=== PATIENT | male | born 1960 | race Caucasian/White ===

== ENCOUNTER 2020-04-21 04:22 | Inpatient (IN) | payer MEDICARE, OTHER ==
[~2020-04-21] VITALS: Ht 188 cm; Wt 88.5 kg
[2020-04-21 05:02] LABS: BASOPHILS % 0.3 % (0.0-2.0); HEMATOCRIT. 49.3 % (42.0-52.0); HEMOGLOBIN. 16.9 g/dL (14.0-18.0); LYMPHOCYTES % 9.9 % (20.0-50.0); MEAN CORPUSCULAR HEMOGLOBIN 32.4 pg (28.0-32.0); MEAN CORPUSCULAR VOLUME 94.5 fL (80.0-94.0); MEAN PLATELET VOLUME 8.3 fl (7.4-10.4); MONOCYTES % 10.7 % (2.0-8.0); NEUTROPHILS % 79.1 % (40.0-76.0); PLATELET 158 x1000/uL (130-400); RED BLOOD CELL COUNT 5.21 mill/uL (4.7-6.1); RED CELL DISTRIBUTION WIDTH 15.6 % (11.6-14.6)
[2020-04-21 05:09] LABS: CHLORIDE 99 mEq/L (98-107)
[2020-04-21 05:11] LABS: INR 0.9; PROTHROMBIN TIME 10.3 sec (9.6-11.0)
[2020-04-21] MEDS ORDERED: SODIUM CHLORIDE 0.9% 1,000 ML IV ONE (06:30)
[2020-04-21] MEDS ORDERED: MORPHINE SULFATE 4 MG/ML CPJ (NOT FOR IM USE) IV STA (06:30)
[2020-04-21] MEDS ORDERED: ONDANSETRON HCL 4MG/2ML INJ IV STA (06:30)
[2020-04-21 07:04] LABS: CLARITY URINE CLEAR (CLEAR); COLOR URINE DARK YELLOW (YELLOW); KETONES URINE 1+ (NEGATIVE); LEUKOCYTE ESTERASE URINE NEGATIVE (NEGATIVE); NITRITE URINE NEGATIVE (NEGATIVE); OCCULT BLOOD URINE NEGATIVE (NEGATIVE); PH URINE 5.5 (4.5-8.0); PROTEIN URINE 2+ (NEGATIVE); SPECIFIC GRAVITY URINE 1.023 (1.005-1.030)
[2020-04-21] MEDS ORDERED: MORPHINE SULFATE 4 MG/ML CPJ (NOT FOR IM USE) IV ONE (08:00)
[2020-04-21] MEDS ORDERED: ONDANSETRON HCL 4MG/2ML INJ IV ONE (08:15)
[2020-04-21] MEDS ORDERED: DIPHENHYDRAMINE 50MG/ML VIAL IV PRN (10:00)
[2020-04-21] MEDS ORDERED: NA PHOS,M-B/NA PHOS,DI-BA ENEMA 118ML PR PRN (10:00)
[2020-04-21] MEDS ORDERED: MAGNESIUM/ALUMINUM HYDROXIDE/SIMETHICONE 30ML UDC PO PRN (10:00)
[2020-04-21] MEDS ORDERED: GUAIFENESIN 200MG/10ML SUGAR FREE UDC PO PRN (10:00)
[2020-04-21] MEDS ORDERED: CLONIDINE 0.1MG TABLET PO PRN (10:00)
[2020-04-21] MEDS ORDERED: DOCUSATE SODIUM 100MG CAPSULE PO PRN (10:00)
[2020-04-21] MEDS: SODIUM CHLORIDE 0.45% 1,000 ML IV SCH ×2 (10:07→20:10)
[2020-04-21] MEDS: MORPHINE SULFATE 2 MG/ML CPJ (NOT FOR IM USE) IV PRN ×3 (10:24→23:58)
[2020-04-21 13:25] LABS: *AMPHETAMINES SCREEN URINE NEGATIVE (NEGATIVE)
[2020-04-21 13:26] LABS: *BARBITURATES SCREEN URINE NEGATIVE (NEGATIVE); *BENZODIAZEPINES SCREEN URINE NEGATIVE (NEGATIVE); *COCAINE SCREEN URINE NEGATIVE (NEGATIVE); METHADONE URINE SCREEN NEGATIVE (NEGATIVE); OPIATES URINE SCREEN PRESUMTIVE POSITIVE (NEGATIVE); PHENCYCLIDINE URINE SCREEN NEGATIVE (NEGATIVE)
[2020-04-21 13:27] LABS: CANNABINOID URINE SCREEN PRESUMTIVE POSITIVE (NEGATIVE)
[2020-04-21 16:00] VITALS: BP 163/90
[2020-04-21 16:46] VITALS: BP 163/90
[2020-04-21] MEDS ORDERED: AMLO10TA80 PO (16:52)
[2020-04-21] MEDS ORDERED: OMEP20CA14 PO (16:53)
[2020-04-21] MEDS ORDERED: LIP40 PO (16:55)
[2020-04-21] MEDS ORDERED: MORPHINE SULFATE 2 MG/ML CPJ (NOT FOR IM USE) IV NR (17:53)
[2020-04-21] MEDS: ONDANSETRON HCL 4MG/2ML INJ IV PRN (19:42)
[2020-04-21 20:00] VITALS: BP 144/87
[2020-04-22] VITALS: BP 137/88
[2020-04-22 04:00] VITALS: BP 151/88
[2020-04-22] MEDS: MORPHINE SULFATE 2 MG/ML CPJ (NOT FOR IM USE) IV PRN ×5 (04:06→20:22)
[2020-04-22] MEDS: SODIUM CHLORIDE 0.45% 1,000 ML IV SCH ×2 (06:12→16:33)
[2020-04-22 08:00] VITALS: BP 159/84
[2020-04-22] MEDS: ONDANSETRON HCL 4MG/2ML INJ IV PRN (08:08)
[2020-04-22] MEDS: ENOXAPARIN 40MG/0.4ML SYR SUBCUT SCH (08:08)
[2020-04-22] MEDS ORDERED: AMYL1CAP59 MT (09:10)
[2020-04-22 12:00] VITALS: BP 155/101
[2020-04-22] MEDS: PANTOPRAZOLE SODIUM 40 MG/VIAL IV SCH (12:07)
[2020-04-22] MEDS: AMLODIPINE 10MG TABLET PO SCH (12:08)
[2020-04-22] MEDS: LIPASE/PROTEASE/AMYLASE 4,200/14,200/24,600 UNITS CAP DR PO SCH ×2 (12:39→18:00)
[2020-04-22 16:00] VITALS: BP 129/83
[2020-04-22 16:43] LABS: BASOPHILS % 0.6 % (0.0-2.0); EOSINOPHILS % 0.4 % (0.0-5.0); HEMATOCRIT. 40.4 % (42.0-52.0); HEMOGLOBIN. 14.2 g/dL (14.0-18.0); LYMPHOCYTES % 20.8 % (20.0-50.0); MEAN CORPUSCULAR HEMOGLOBIN 33.1 pg (28.0-32.0); MEAN CORPUSCULAR VOLUME 94.1 fL (80.0-94.0); MEAN PLATELET VOLUME 8.7 fl (7.4-10.4); MONOCYTES % 11.1 % (2.0-8.0); NEUTROPHILS % 67.1 % (40.0-76.0); PLATELET 149 x1000/uL (130-400); RED BLOOD CELL COUNT 4.29 mill/uL (4.7-6.1); RED CELL DISTRIBUTION WIDTH 15.4 % (11.6-14.6)
[2020-04-22 16:50] LABS: CHLORIDE 100 mEq/L (98-107)
[2020-04-22 17:00] LABS: LDL CHOLESTEROL 64 mg/dL (5-100)
[2020-04-22 17:02] LABS: HDL CHOLESTEROL 84 mg/dL (40-59)
[2020-04-22 20:00] VITALS: BP 141/87
[2020-04-22] MEDS: ATORVASTATIN CALCIUM 40MG TABLET PO SCH (20:21)
[2020-04-23] VITALS (7 sets, daily range): BP systolic 130–156; BP diastolic 86–96
[2020-04-23] MEDS: MORPHINE SULFATE 2 MG/ML CPJ (NOT FOR IM USE) IV PRN ×6 (00:33→20:41)
[2020-04-23] MEDS: SODIUM CHLORIDE 0.45% 1,000 ML IV SCH ×3 (02:13→20:32)
[2020-04-23 07:35] LABS: AMYLASE 65 IU/L (25-115)
[2020-04-23] MEDS: AMLODIPINE 10MG TABLET PO SCH (08:41)
[2020-04-23] MEDS: LIPASE/PROTEASE/AMYLASE 4,200/14,200/24,600 UNITS CAP DR PO SCH ×3 (08:41→17:42)
[2020-04-23] MEDS: ENOXAPARIN 40MG/0.4ML SYR SUBCUT SCH (08:42)
[2020-04-23] MEDS: PANTOPRAZOLE SODIUM 40 MG/VIAL IV SCH (08:52)
[2020-04-23 13:38] LABS: BASOPHILS % 1.1 % (0.0-2.0); EOSINOPHILS % 0.5 % (0.0-5.0); HEMATOCRIT. 42.8 % (42.0-52.0); HEMOGLOBIN. 14.9 g/dL (14.0-18.0); LYMPHOCYTES % 21.5 % (20.0-50.0); MEAN CORPUSCULAR HEMOGLOBIN 32.7 pg (28.0-32.0); MEAN CORPUSCULAR VOLUME 94.2 fL (80.0-94.0); MEAN PLATELET VOLUME 8.5 fl (7.4-10.4); MONOCYTES % 11.6 % (2.0-8.0); NEUTROPHILS % 65.3 % (40.0-76.0); PLATELET 167 x1000/uL (130-400); RED BLOOD CELL COUNT 4.54 mill/uL (4.7-6.1); RED CELL DISTRIBUTION WIDTH 15.5 % (11.6-14.6)
[2020-04-23 13:43] LABS: CHLORIDE 101 mEq/L (98-107); PROTHROMBIN TIME 10.6 sec (9.6-11.0)
[2020-04-23] MEDS: ATORVASTATIN CALCIUM 40MG TABLET PO SCH (20:31)
[2020-04-24] MEDS: MORPHINE SULFATE 2 MG/ML CPJ (NOT FOR IM USE) IV PRN ×3 (00:55→09:47)
[2020-04-24 03:54] VITALS: BP 140/88
[2020-04-24 08:00] VITALS: BP 142/87
[2020-04-24] MEDS: LIPASE/PROTEASE/AMYLASE 4,200/14,200/24,600 UNITS CAP DR PO SCH (08:49)
[2020-04-24] MEDS: ENOXAPARIN 40MG/0.4ML SYR SUBCUT SCH (08:50)
[2020-04-24] MEDS: SODIUM CHLORIDE 0.45% 1,000 ML IV SCH (08:50)
[2020-04-24] MEDS: AMLODIPINE 10MG TABLET PO SCH (08:50)
[2020-04-24] MEDS: PANTOPRAZOLE SODIUM 40 MG/VIAL IV SCH (08:50)
[2020-04-24 09:31] VITALS: BP 142/87
[2020-04-24 09:47] VITALS: BP 142/78
== END 2020-04-24 11:27 | disposition home or self-care (01) | DRG 439 ==
LOC: ER 04:22 → MICUSO 09:00 → 6EST 17:53
PROVIDERS: ADMIT Family Medicine; ATTEND Family Medicine
DX: K85.90 Acute pancreatitis without necrosis or infection, unspecified (principal); E87.1 Hypo-osmolality and hyponatremia; I10 Essential (primary) hypertension; K44.9 Diaphragmatic hernia without obstruction or gangrene; K57.90 Diverticulosis of intestine, part unspecified, without perforation or abscess without bleeding; K76.0 Fatty (change of) liver, not elsewhere classified; K86.1 Other chronic pancreatitis; D75.89 Other specified diseases of blood and blood-forming organs; Z90.411 Acquired partial absence of pancreas; Z90.49 Acquired absence of other specified parts of digestive tract; Z90.81 Acquired absence of spleen
CPT/HCPCS: 36415; 74176; 80053; 80061; 80305; 81003; 82150; 85025; 99285; C9113; J1650; J2270; J2405; J7030

== ENCOUNTER 2022-04-13 09:52 | Emergency (ER) | payer MEDICARE, MEDICAID ==
[~2022-04-13] VITALS: Ht 180.3 cm; Wt 88.0 kg
[~2022-04-13 09:52] MED LIST: AMLO10TA80 PO; AMYL1CAP59 MT; FOLI-43 MT; LIP40 PO; OMEP20CA14 PO; THIA100T72 MT
[2022-04-13] MEDS ORDERED: ONDANSETRON HCL 4MG/2ML INJ IV STA (10:18)
[2022-04-13] MEDS ORDERED: MORPHINE SULFATE 4 MG/ML CPJ (NOT FOR IM USE) IV STA (10:18)
[2022-04-13 10:49] LABS: BASOPHILS % 0.6 % (0.0-2.0); HEMOGLOBIN. 15.3 g/dL (14.0-18.0); LYMPHOCYTES % 29.3 % (20.0-50.0); MEAN CORPUSCULAR HEMOGLOBIN 30.9 pg (28.0-32.0); MEAN PLATELET VOLUME 7.6 fl (7.4-10.4); MONOCYTES % 9.6 % (2.0-8.0); NEUTROPHILS % 60.5 % (40.0-76.0); PLATELET 239 x1000/uL (130-400); RED BLOOD CELL COUNT 4.95 mill/uL (4.7-6.1); RED CELL DISTRIBUTION WIDTH 15.8 % (11.6-14.6)
[2022-04-13 10:59] LABS: CHLORIDE 98 mEq/L (98-107)
[2022-04-13 11:10] LABS: ETHANOL BLOOD 268 mg/dL
[2022-04-13 12:25] VITALS: BP 135/85
== END 2022-04-13 12:24 | disposition home or self-care (01) ==
LOC: ER 10:07
DX: R10.13 Epigastric pain (principal); T51.0X1A Toxic effect of ethanol, accidental (unintentional), initial encounter; Y92.89 Other specified places as the place of occurrence of the external cause; I10 Essential (primary) hypertension; Z79.899 Other long term (current) drug therapy; K86.1 Other chronic pancreatitis
CPT/HCPCS: 36415; 74176; 80053; 80320; 83690; 85025; 96374; 96375; 99284; J2270; J2405; G0480

== ENCOUNTER 2022-04-15 17:11 | Inpatient (IN) | payer MEDICARE, MEDICAID ==
[~2022-04-15] VITALS: Ht 190.5 cm; Wt 90.7 kg
[2022-04-15] MEDS ORDERED: ONDANSETRON HCL 4MG/2ML INJ IV STA (18:13)
[2022-04-15] MEDS ORDERED: SODIUM CHLORIDE 0.9% 1,000 ML IV ONE (18:15)
[2022-04-15] MEDS ORDERED: FOLIC ACID 1 MG, THIAMINE HCL 100 MG, MVI, ADULT NO.1 10 ML in DEXTROSE 5% WATER 1,000 ML IV ONE ×4 (18:15)
[2022-04-15 19:14] LABS: BASOPHILS % 0.2 % (0.0-2.0); HEMATOCRIT. 43.4 % (42.0-52.0); HEMOGLOBIN. 14.9 g/dL (14.0-18.0); LYMPHOCYTES % 8.7 % (20.0-50.0); MEAN CORPUSCULAR HEMOGLOBIN 30.9 pg (28.0-32.0); MEAN CORPUSCULAR VOLUME 89.7 fL (80.0-94.0); MEAN PLATELET VOLUME 7.7 fl (7.4-10.4); MONOCYTES % 8.3 % (2.0-8.0); NEUTROPHILS % 82.8 % (40.0-76.0); PLATELET 173 x1000/uL (130-400); RED BLOOD CELL COUNT 4.84 mill/uL (4.7-6.1); RED CELL DISTRIBUTION WIDTH 15.6 % (11.6-14.6)
[2022-04-15 19:19] LABS: CHLORIDE 86 mEq/L (98-107)
[2022-04-15 19:27] LABS: ETHANOL BLOOD 88 mg/dL
[2022-04-15] MEDS ORDERED: MORPHINE SULFATE 4 MG/ML CPJ (NOT FOR IM USE) IV ONE (19:45)
[2022-04-15] MEDS ORDERED: ONDANSETRON HCL 4MG/2ML INJ IV NR (20:30)
[2022-04-15] MEDS ORDERED: MORPHINE SULFATE 4 MG/ML CPJ (NOT FOR IM USE) IV SCH (20:30)
[2022-04-15] MEDS ORDERED: POTASSIUM CHLORIDE INJ 40 MEQ in DEXT 5% WATER 250 ML IV ONE (22:00)
[2022-04-15] MEDS: KCL 20MEQ/100ML X 2 FOR TOTAL KCL 40MEQ/200ML IV SCH (22:30)
[2022-04-16] MEDS ORDERED: MORPHINE SULFATE 4 MG/ML CPJ (NOT FOR IM USE) IV NR (00:30)
[2022-04-16] MEDS ORDERED: ONDANSETRON HCL 4MG/2ML INJ IV NR (00:30)
[2022-04-16] MEDS: ONDANSETRON HCL 4MG/2ML INJ IV PRN ×2 (07:10→17:47)
[2022-04-16] MEDS ORDERED: MORPHINE SULFATE 2 MG/ML CPJ (NOT FOR IM USE) IV NR (07:15)
[2022-04-16] MEDS ORDERED: LORAZEPAM 2MG/ML CPJ IV PRN (11:15)
[2022-04-16 12:36] LABS: BG BASE EXCESS 1.8 mmol/L (-2.0-2.0); BG CARBOXYHEMOGLOBIN 0.7 % (0.5-1.5); BG DEOXYHEMOGLOBIN 2.3 % (0.0-5.0); BG FRACTION INSPIRED OXYGEN 24; BG HCO3 ACT 23.2 mmol/L (22.0-26.0); BG METHEMOGLOBIN 0.2 % (0.0-1.5); BG OXYGEN SATURATION 97.7 % (92.0-98.5); BG OXYHEMOGLOBIN 96.8 % (94.0-97.0); BG PCO2 28.1 mmHg (35.0-45.0); BG PH 7.534 (7.350-7.450); BG PO2 88.5 mmHg (75.0-100.0); BG SAMPLE SITE RIGHT RADIAL; BG VENT MODE NASAL CANNULA
[2022-04-16] MEDS ORDERED: FOLIC ACID 1 MG, THIAMINE HCL 100 MG, MVI, ADULT NO.1 10 ML in DEXTROSE 5% WATER 1,000 ML IV ONE ×4 (13:00)
[2022-04-16] MEDS: PIPERACILLIN/TAZOBACTAM 3.375 G in DEXTROSE 5% WATER 50 ML IV SCH ×2 (13:19→21:09)
[2022-04-16 15:30] VITALS: BP 106/73
[2022-04-16 16:00] VITALS: BP 144/86
[2022-04-16] MEDS ORDERED: IPRATROPIUM/ALBUTEROL 0.5-3(2.5)MG/3ML NEB HHN PRN (16:15)
[2022-04-16] MEDS ORDERED: BISACODYL 10MG SUPP PR PRN (16:15)
[2022-04-16] MEDS ORDERED: ACETAMINOPHEN 650MG SUPP PR PRN (16:15)
[2022-04-16] MEDS ORDERED: DIPHENHYDRAMINE 50MG/ML VIAL IV PRN (16:15)
[2022-04-16] MEDS ORDERED: HYDROCODONE/ACETAMINOPHEN 5/325MG TABLET PO PRN (16:15)
[2022-04-16] MEDS: CHLORDIAZEPOXIDE 25MG CAPSULE PO SCH ×2 (17:47→21:10)
[2022-04-16 18:02] LABS: BASOPHILS % 0.2 % (0.0-2.0); HEMATOCRIT. 43.6 % (42.0-52.0); LYMPHOCYTES % 10.9 % (20.0-50.0); MEAN CORPUSCULAR HEMOGLOBIN 30.8 pg (28.0-32.0); MEAN CORPUSCULAR VOLUME 89.9 fL (80.0-94.0); MEAN PLATELET VOLUME 8.7 fl (7.4-10.4); NEUTROPHILS % 80.9 % (40.0-76.0); PLATELET 166 x1000/uL (130-400); RED BLOOD CELL COUNT 4.85 mill/uL (4.7-6.1); RED CELL DISTRIBUTION WIDTH 15.8 % (11.6-14.6)
[2022-04-16 18:11] LABS: INR 0.9; PROTHROMBIN TIME 10.2 sec (9.6-11.0)
[2022-04-16 18:16] LABS: CHLORIDE 92 mEq/L (98-107)
[2022-04-16 18:31] LABS: LDL CHOLESTEROL 22 mg/dL (5-100)
[2022-04-16 18:39] LABS: HDL CHOLESTEROL 140 mg/dL (40-59)
[2022-04-16] MEDS ORDERED: POTASSIUM CHLORIDE 20MEQ TABLET SR PO NR (19:00)
[2022-04-16] MEDS: PANTOPRAZOLE SODIUM 40 MG/VIAL IV SCH (19:13)
[2022-04-16] MEDS: KCL 20MEQ/100ML X 2 FOR TOTAL KCL 40MEQ/200ML IV SCH (19:13)
[2022-04-16] MEDS ORDERED: NALOXONE HCL 0.4MG/ML VIAL IV PRN (19:15)
[2022-04-16 20:00] VITALS: BP 115/70
[2022-04-16] MEDS: ENOXAPARIN 40MG/0.4ML SYR SUBCUT SCH (20:55)
[2022-04-16] MEDS: SODIUM CHLORIDE 0.9% 1,000 ML IV SCH (21:09)
[2022-04-16] MEDS: IPRATROPIUM/ALBUTEROL 0.5-3(2.5)MG/3ML NEB HHN SCH (21:18)
[2022-04-17] VITALS: BP 130/82
[2022-04-17] MEDS: IPRATROPIUM/ALBUTEROL 0.5-3(2.5)MG/3ML NEB HHN SCH ×4 (01:31→21:24)
[2022-04-17 01:43] LABS: *AMPHETAMINES SCREEN URINE NEGATIVE (NEGATIVE); *BARBITURATES SCREEN URINE NEGATIVE (NEGATIVE); *BENZODIAZEPINES SCREEN URINE NEGATIVE (NEGATIVE); *COCAINE SCREEN URINE NEGATIVE (NEGATIVE); CANNABINOID URINE SCREEN PRESUMTIVE POSITIVE (NEGATIVE); METHADONE URINE SCREEN NEGATIVE (NEGATIVE); OPIATES URINE SCREEN PRESUMTIVE POSITIVE (NEGATIVE); PHENCYCLIDINE URINE SCREEN NEGATIVE (NEGATIVE)
[2022-04-17 04:00] VITALS: BP 123/70
[2022-04-17] MEDS: PIPERACILLIN/TAZOBACTAM 3.375 G in DEXTROSE 5% WATER 50 ML IV SCH ×3 (05:34→21:06)
[2022-04-17] MEDS: SODIUM CHLORIDE 0.9% 1,000 ML IV SCH ×3 (05:34→21:07)
[2022-04-17] MEDS: CHLORDIAZEPOXIDE 25MG CAPSULE PO SCH ×3 (05:42→21:06)
[2022-04-17 08:00] VITALS: BP 105/70
[2022-04-17 08:55] LABS: BASOPHILS % 0.2 % (0.0-2.0); EOSINOPHILS % 0.3 % (0.0-5.0); HEMATOCRIT. 43.7 % (42.0-52.0); HEMOGLOBIN. 14.5 g/dL (14.0-18.0); LYMPHOCYTES % 15.2 % (20.0-50.0); MEAN CORPUSCULAR HEMOGLOBIN 30.7 pg (28.0-32.0); MEAN CORPUSCULAR VOLUME 92.3 fL (80.0-94.0); MEAN PLATELET VOLUME 8.4 fl (7.4-10.4); MONOCYTES % 9.6 % (2.0-8.0); NEUTROPHILS % 74.7 % (40.0-76.0); PLATELET 160 x1000/uL (130-400); RED BLOOD CELL COUNT 4.73 mill/uL (4.7-6.1); RED CELL DISTRIBUTION WIDTH 16.2 % (11.6-14.6)
[2022-04-17] MEDS: PANTOPRAZOLE SODIUM 40 MG/VIAL IV SCH (09:04)
[2022-04-17 10:05] LABS: CHLORIDE 94 mEq/L (98-107)
[2022-04-17 12:00] VITALS: BP 118/75
[2022-04-17] MEDS: ACETAMINOPHEN 325MG TABLET PO PRN ×2 (13:12→21:07)
[2022-04-17 15:54] VITALS: BP 103/74
[2022-04-17] MEDS: MULTIVITAMINS,THER W-MINERALS TABLET PO SCH (16:47)
[2022-04-17] MEDS: THIAMINE HCL 100MG TABLET PO SCH (16:47)
[2022-04-17] MEDS: FOLIC ACID 1MG TABLET PO SCH (16:47)
[2022-04-17 20:00] VITALS: BP 120/69
[2022-04-17] MEDS: ENOXAPARIN 40MG/0.4ML SYR SUBCUT SCH (21:07)
[2022-04-18] VITALS: BP 116/74
[2022-04-18] MEDS: IPRATROPIUM/ALBUTEROL 0.5-3(2.5)MG/3ML NEB HHN SCH ×3 (00:52→14:30)
[2022-04-18 04:00] VITALS: BP 118/64
[2022-04-18] MEDS: PIPERACILLIN/TAZOBACTAM 3.375 G in DEXTROSE 5% WATER 50 ML IV SCH ×2 (05:57→13:26)
[2022-04-18] MEDS: CHLORDIAZEPOXIDE 25MG CAPSULE PO SCH ×2 (05:57→13:25)
[2022-04-18 07:47] LABS: BASOPHILS % 0.4 % (0.0-2.0); EOSINOPHILS % 0.3 % (0.0-5.0); HEMATOCRIT. 37.9 % (42.0-52.0); HEMOGLOBIN. 12.9 g/dL (14.0-18.0); LYMPHOCYTES % 13.6 % (20.0-50.0); MEAN CORPUSCULAR HEMOGLOBIN 30.5 pg (28.0-32.0); MEAN CORPUSCULAR VOLUME 89.8 fL (80.0-94.0); MEAN PLATELET VOLUME 8.6 fl (7.4-10.4); MONOCYTES % 8.2 % (2.0-8.0); NEUTROPHILS % 77.5 % (40.0-76.0); PLATELET 157 x1000/uL (130-400); RED BLOOD CELL COUNT 4.23 mill/uL (4.7-6.1); RED CELL DISTRIBUTION WIDTH 15.7 % (11.6-14.6)
[2022-04-18 08:00] VITALS: BP 125/82
[2022-04-18] MEDS: FOLIC ACID 1MG TABLET PO SCH (08:37)
[2022-04-18] MEDS: THIAMINE HCL 100MG TABLET PO SCH (08:37)
[2022-04-18] MEDS: PANTOPRAZOLE SODIUM 40 MG/VIAL IV SCH (08:37)
[2022-04-18] MEDS: MULTIVITAMINS,THER W-MINERALS TABLET PO SCH (08:37)
[2022-04-18] MEDS: SODIUM CHLORIDE 0.9% 1,000 ML IV SCH ×2 (08:38→16:15)
[2022-04-18 08:48] LABS: CHLORIDE 100 mEq/L (98-107)
[2022-04-18 12:00] VITALS: BP 134/87
[2022-04-18] MEDS ORDERED: MULT-622 MT (14:45)
[2022-04-18] MEDS ORDERED: FOLI-43 MT (14:45)
[2022-04-18] MEDS ORDERED: THIA100T72 MT (14:45)
[2022-04-18] MEDS ORDERED: OMEP20CA14 PO (14:45)
[2022-04-18] MEDS ORDERED: LEVO250T58 MT (14:49)
[2022-04-18 16:00] VITALS: BP 133/77
[2022-04-18 17:08] VITALS: BP 133/77
[2022-04-19] MEDS ORDERED: FAMOTIDINE 20MG/2ML VIAL IV SCH (09:00)
== END 2022-04-18 18:00 | disposition home health service (06) | DRG 194 ==
LOC: ER 17:11 → MICUSO 04-16 02:36 → 7WST 04-16 15:29
PROVIDERS: ADMIT Internal Medicine; ATTEND Internal Medicine
DX: J18.9 Pneumonia, unspecified organism (principal); E87.1 Hypo-osmolality and hyponatremia; E87.2 Acidosis; F10.139 Alcohol abuse with withdrawal, unspecified; R65.10 Systemic inflammatory response syndrome (SIRS) of non-infectious origin without acute organ dysfunction; E87.6 Hypokalemia; E11.9 Type 2 diabetes mellitus without complications; I10 Essential (primary) hypertension; F12.10 Cannabis abuse, uncomplicated; F11.10 Opioid abuse, uncomplicated; K76.0 Fatty (change of) liver, not elsewhere classified; Y90.4 Blood alcohol level of 80-99 mg/100 ml; Z20.822 Contact with and (suspected) exposure to COVID-19; Z90.411 Acquired partial absence of pancreas; Z79.899 Other long term (current) drug therapy; Z71.41 Alcohol abuse counseling and surveillance of alcoholic; Z71.51 Drug abuse counseling and surveillance of drug abuser
CPT/HCPCS: 36415; 36600; 71045; 74176; 80048; 80053; 80061; 80305; 80320; 82140; 82375; 82805; 83036; 83605; 83735; 84443; 85025; 87426; 93005; 94640; 97162; 99285; C9113; J1650; J2060; J2270; J2405; J2543; J3411; J3480; J3490; J7030; J7060; J7070; G0480

== ENCOUNTER 2024-05-13 09:30 | Emergency (ER) | payer BC, MEDICAID ==
[~2024-05-13] VITALS: Ht 188 cm; Wt 91.0 kg
[~2024-05-13 09:30] MED LIST changes: +LEVO250T74 MT; +MULT-622 MT
[2024-05-13 09:34] VITALS: O2SAT 98
[2024-05-13 11:41] VITALS: BP 156/96; PULSE 108; RESP 18; TEMP 98.7
== END 2024-05-13 13:12 | disposition home or self-care (01) ==
LOC: ER 10:07
DX: M54.30 Sciatica, unspecified side (principal); I10 Essential (primary) hypertension; E78.00 Pure hypercholesterolemia, unspecified; E11.9 Type 2 diabetes mellitus without complications
CPT/HCPCS: 36415; 85379; 93922; 99284